=== PATIENT | male | born 1960 | race Caucasian/White ===

== ENCOUNTER 2016-06-07 19:27 | Emergency (ER) | payer MEDICAID ==
[~2016-06-07] VITALS: Ht 180.3 cm; Wt 97.5 kg
[~2016-06-07 19:27] MED LIST: NAPR-228
[2016-06-07 19:35] VITALS: BP 122/85
[2016-06-07 20:17] LABS: Urine Bilirubin Negative (Negative); Urine Blood Negative /uL (Negative); Urine Color Yellow (Yellow); Urine Glucose Normal (Normal); Urine Ketone Negative (Negative); Urine Mucus FEW (None Seen); Urine Nitrite Negative (Negative); Urine RBC 1 /hpf (0 - 3); Urine Squamous Epithelial Cell FEW /hpf (<5); Urine Urobilinogen Normal (Negative); Urine pH 5.5 (5.0-8.0)
[2016-06-07 20:24] LABS: Basophils # (auto) 0.1 uL; Basophils % (auto) 0.5 % (0.0-2.0); Eosinophils # (auto) 0.2 uL; Eosinophils % (auto) 1.3 % (0.0-7.0); Hematocrit 52.2 % (41.0-53.0); Hemoglobin 17.5 g/dL (13.5-17.5); Lymphocytes # (auto) 2.2 uL; Lymphocytes % (auto) 18.8 % (10.0-50.0); Mean Corpuscular Hemoglobin 30.3 pg (28.0-32.0); Mean Corpuscular Hgb Conc. 33.6 g/dL (32.0-36.0); Mean Corpuscular Volume 90.3 fL (80.0-100.0); Monocytes # (auto) 0.8 uL; Monocytes % (auto) 7.1 % (0.0-12.0); Neutrophils # (auto) 8.5 uL; Neutrophils % (auto) 72.3 % (37.0-80.0); Platelet Count (auto) 266 10^3/uL (140-450); Red Cell Distribution Width 13.4 % (11.6-16.0); White Blood Cell 11.8 10^3/uL (4.4-10.8)
[2016-06-07 20:43] LABS: Albumin 3.9 g/dL (3.4-5.0); BUN/Creatinine Ratio 9.2; Calcium 8.9 mg/dL (8.5-10.1); Potassium 3.9 mmol/L (3.5-5.1)
[2016-06-07 20:47] LABS: Bilirubin, Total 0.5 mg/dL (0.2-1.0)
== END 2016-06-07 23:35 | disposition left against medical advice (07) ==
LOC: ER 19:37
DX: R10.30 Lower abdominal pain, unspecified (principal); Z53.21 Procedure and treatment not carried out due to patient leaving prior to being seen by health care provider
CPT/HCPCS: 36415; 76870; 80053; 81001; 85025

== ENCOUNTER 2016-10-06 19:06 | Emergency (ER) | payer MEDICAID | END 2016-10-06 19:28 | disposition left against medical advice (07) | LOC: ER 19:09 | DX: N50.819 Testicular pain, unspecified (principal); Z53.21 Procedure and treatment not carried out due to patient leaving prior to being seen by health care provider ==

== ENCOUNTER 2016-10-06 19:47 | Emergency (ER) | payer MEDICAID ==
[~2016-10-06] VITALS: Ht 182.9 cm; Wt 81.6 kg
[2016-10-06 19:58] VITALS: BP 131/76
== END 2016-10-06 20:00 | disposition left against medical advice (07) ==
LOC: EDBD 19:47 → ER 19:50
DX: R10.9 Unspecified abdominal pain (principal); N50.819 Testicular pain, unspecified; Z53.21 Procedure and treatment not carried out due to patient leaving prior to being seen by health care provider